=== PATIENT | male | born 1985 | race African-American/Black ===

== ENCOUNTER 2018-09-10 14:21 | Inpatient (IN) ==
--- NOTE | 2018-09-10 15:00 | EKG Report ---
Test Performed on : 09/10/2018 2:55:42 PM Test Reason : SOB Blood Pressure : / mmHG Vent. Rate : 092 BPM Atrial Rate : 092 BPM P-R Int : 192 ms QRS Dur : 104 ms QT Int : 406 ms P-R-T Axes : 027 -43 068 degrees QTc Int : 502 ms Normal sinus rhythm. Left axis deviation Anterior infarct (cited on or before 03-MAR-2018) Prolonged QT Abnormal ECG When compared with ECG of 03-MAR-2018 01:30, Nonspecific T wave abnormality has replaced inverted T waves in Lateral leads Unconfirmed Result
[2018-09-10 15:30] LABS: BASO# 0.02 X1000 (0.0-0.2); BASO% 0.3 % (0.0-0.8); EOS# 0.09 X1000 (0.0-0.7); EOS% 1.5 % (0.0-10.0); HEMATOCRIT 38.9 % (42.0-52.0); HEMOGLOBIN 12.3 g/dL (14.0-18.0); LYMPH# 2.02 X1000 (1.2-3.4); LYMPH% 34.5 % (20.5-51.1); MCH 28.4 PG (27-31); MCHC 31.6 g/dL (33-37); MCV 89.8 FL (81-99); MONO# 0.45 X1000 (0.11-0.59); MONO% 7.7 % (1.7-9.3); MPV 9.6 FL (7.4-10.4); NEUT# 3.28 X1000 (1.4-6.5); PLT 305 X1000 (130-400); RBC 4.33 XMIL (4.7-6.1); WBC 5.86 X1000 (4.8-10.8)
[2018-09-10 15:34] LABS: INR 1.06; PROTIME 14.7 Seconds (11.0-16.0)
--- NOTE | 2018-09-10 15:43 | Diag Imaging Result Doc PS360 ---
EXAM: CHEST-2 VIEWS HISTORY: SOB TECHNIQUE: Chest two views COMPARISON: 03/03/2018 FINDINGS: The lungs are well expanded. The heart is enlarged. Mild central vascular distention. There are no infiltrates. No pleural effusions. IMPRESSION: Cardiomegaly Electronically signed by Jim Clark 09/10/2018 3:41 PM
[2018-09-10 15:50] LABS: AGAP 9; ALB/GLOB RATIO 1.1; ALBUMIN 3.8 g/dL (3.5-5.0); ALKALINE PHOSPHATASE 69 U/L (32-122); BUN 18 mg/dL (8-22); CALCIUM 9.2 mg/dL (8.8-10.2); CHLORIDE 102 mmol/L (98-107); CK TOTAL 50 U/L (24-204); COSMO 282; CREATININE 1.1 mg/dL (0.7-1.2); ESTIMATED GFR > 60; GLUCOSE 111 mg/dL (70-104); GOT 11 U/L (10-34); GPT 14 U/L (10-44); POTASSIUM 4.4 mmol/L (3.5-5.1); SODIUM 140 mmol/L (136-145); TCO2 29 mmol/L (25-35); TOTAL BILIRUBIN 0.86 mg/dL (0.20-1.00); TOTAL PROTEIN 7.4 g/dL (6.3-8.3)
--- NOTE | 2018-09-10 18:58 | HISTORY AND PHYSICAL ---
PRIMARY CARE PHYSICIAN: Dr. Keron Quiñonez. PAPER BAG INSPECTOR: Dr. Chalo Cole. CHIEF COMPLAINT: Edema and dyspnea. HISTORY OF PRESENT ILLNESS: Mr. Reynaga is a 33-year-old male with a history of nonischemic cardiomyopathy, EF of 20%, , morbid obesity, hypertension and medical noncompliance who presents with roughly two weeks of increasing dyspnea, cough, lower extremity and abdominal swelling. He is unable to report on orthopnea, as he does not lie flat at night, but he does report ever increasing shortness of breath with exertion. He denies any chest pain. No fever, chills, or mucopurulent sputum production. He does report that he is noncompliant with intake of salt and fluids, but he does take his medications. He has not had a Cardiology evaluation since last year, per his report. When he got to the ER, he had labs and diagnostics done. He is noted to be slightly anemic with a proBNP of 2038, otherwise unremarkable. His EKG showed a normal sinus rhythm with a first degree AV block, left axis deviation, and nonspecific T wave changes in the lateral leads. The first set of troponin negative. He is going to be admitted for observation status. Cardiology has been consulted. PAST MEDICAL HISTORY: 1. Nonischemic cardiomyopathy with systolic heart failure, EF 25%. 2. History of poorly controlled hypertension. 3. Question of atrial fibrillation noted on chart in 2013. 4. Morbid obesity. 5. Chronic anemia. 6. History of stroke without any long-term sequela. SURGICAL HISTORY: 1. Left ankle surgery. SOCIAL HISTORY: He denies tobacco, alcohol, or drug use. His girlfriend is at the bedside. He has three children. FAMILY HISTORY: Father from what sounded like homicide. Mother is still alive without any medical problems, per his report. REVIEW OF SYSTEMS: A 14-point review of systems was obtained and found to be negative with the exception of the HPI. ALLERGIES: Vancomycin and lisinopril. HOME MEDICATIONS: Cozaar 25 mg daily, Aldactone 25 mg daily, Demadex 20 mg p.o. b.i.d., Coreg 25 mg p.o. b.i.d. PHYSICAL EXAMINATION: VITAL SIGNS: Blood pressure 127/85; heart rate 81; respiratory rate 22; O2 saturation 96% on room air; temperature 98.2. GENERAL: This is a morbidly obese 33-year-old male lying in the hospital bed in no acute distress. NEUROLOGICAL: He is awake, alert, and oriented. Follows commands without focal deficits. HEENT: Head is atraumatic and normocephalic. His pupils are equal, round and reactive to light. His oral mucosa is moist. NECK: Unable to assess neck secondary to body habitus. CHEST: Distant lung sounds but faint crackles heard in the lung bases. CARDIOVASCULAR: Regular rate and rhythm. S1 and S2 are noted. GASTROINTESTINAL: Soft. Nondistended. Nontender. Bowel sounds are active. EXTREMITIES: Trace edema. Pulses 1+ bilaterally. DIAGNOSTIC DATA: Chest x-ray shows mild central vascular distention and cardiomegaly. EKG shows sinus rhythm; first degree AV block; left axis deviation; nonspecific T wave changes. WBC 5.86, hemoglobin 12.3, hematocrit 38.9, platelet count 305,000. INR 1.06. Sodium 140, potassium 4.4, chloride 102, CO2 29, anion gap 9, BUN 18, creatinine 1.1, glucose 111. LFTs are negative. Troponin negative. proBNP 8. Albumin 3.8. ASSESSMENT AND PLAN: 1.Acute on chronic systolic heart failure: We will add intravenous diuresis and follow his intake and output. Will trend cardiac enzymes and make sure he is on aspirin. Consult Cardiology. We will restart his home medications with the exception of his Demadex, instead add intravenous Lasix. He would be a good candidate for Entresto, however he is allergic to lisinopril but he does take losartan. We will also order a nutrition consult as he admits to poor heart healthy diet. 2. Hypertension: Continue home medications. 3. Morbid obesity with a body mass index greater than 60: We have advised weight loss. Will continue to try and provide education on a daily basis and nutrition will be consulted as well. 4. Deep venous thrombosis prophylaxis with Lovenox. Further recommendations to follow. Dictated by HILARY Vinson for Sharon Ha MD cc: HILARY Vinson MD I performed a face to face encounter on the patient. I reviewed all labs and imaging on the patient. I agree with the H&P as dictated. is a 33 year old male with a history of nonischemic cardiomyopathy and biventricular heart failure who presented with increased abdominal and lower extremity swelling. On exam, the patient has 1+ edema in his lower extremities. His breath sounds are clear to auscultation bilaterally. His chest xray shows cardiomegaly. Will admit the patient and place him on telemetry and initiate IV diuretic therapy. Will also consult with the motor home electrical foreman due to his extensive cardiac history. TRACI
[2018-09-10 19:08] LABS: URINE SOURCE CLEAN CATCH
[2018-09-10 19:09] LABS: TSH 2.79 uIUmL (0.27-4.20)
[2018-09-10 19:13] LABS: BILIRUBIN URINE NEGATIVE (NEGATIVE); BLOOD URINE NEGATIVE (NEGATIVE); COLOR YELLOW; GLUCOSE URINE NEGATIVE (NEGATIVE); KETONE URINE NEGATIVE (NEGATIVE); LEUKOCYTES URINE NEGATIVE (NEGATIVE); NITRITE URINE NEGATIVE (NEGATIVE); PH URINE 6.5; PROTEIN URINE 100 mg/dL (NEGATIVE); TURBIDITY URINE CLEAR (CLEAR); UROBILINOGEN URINE NORMAL (NORMAL)
[2018-09-10 19:16] LABS: UR EPITHELIAL CELLS <10 /HPF (<10); URINE BACTERIA NEGATIVE /HPF; URINE RBC <10 /HPF (<10); URINE WBC <10 /HPF (<10)
--- NOTE | 2018-09-10 19:30 | PROVIDER DOCUMENTATION ---
This chart was entered by Lavonne Ramirez Scribe, acting as scribe for Eunice Carrington MD. HPI-Respiratory General - General Chief Complaint: Shortness of Breath Stated Complaint: CHF-COUGHING UP BLOOD Time Seen by Provider: 09/10/18 16:31 Source: patient Allergies/Adverse Reactions: Patient Allergies Allergy/AdvReac Type Severity Reaction Status Date / Time vancomycin Allergy RASH Verified 09/10/18 17:02 lisinopril AdvReac SWELLING Verified 09/10/18 17:02 Home Medications: Home Medication List Medication Instructions Recorded Confirmed Last Taken Type Carvedilol [Coreg] 25 mg PO BID 11/03/14 09/10/18 09/10/18 History Torsemide [Demadex] 20 mg PO BID 11/03/14 09/10/18 09/10/18 History Spironolactone 25 mg PO DAILY 11/03/16 09/10/18 09/10/18 History Losartan [Cozaar] 25 mg PO DAILY 09/10/18 09/10/18 09/10/18 History - History of Present Illness-Resp Nature of Presenting Problem: 33 yom presents to the ed with c/o neck pain, sob and left arm pain only when walking. pt is morbidly obese and sts sleeps in a recliner. pt denies chest pain. pt sts BLE swelling. Quality of Pain: reports: aching Severity in ED: reports: mild Onset/Duration: reports: 3 days ago Timing: reports: still present, getting worse Exposure: reports: unknown cause Cough Quality/Degree: reports: no cough Episode Frequency: no prior episodes Current Respiratory Medication Therapy: Initiated see nurses note Modifying Factors: improves with: rest, sitting upright. worse with: exertion Associated Symptoms: reports: shortness of breath, other (neck pain and left arm numbness). denies: chest pain/soreness, cough, fever/chills Similar Symptoms Previously?: No Recently seen or treated by another doctor?: No Review of Systems - Adult - REVIEW OF SYSTEMS - ADULT Constitutional: denies: chills, fever Eyes: reports: no symptoms reported Ears, Nose, Mouth & Throat: reports: no symptoms reported Cardiovascular: denies: chest pain, palpitations Respiratory: reports: no symptoms reported Gastrointestinal: denies: abdominal pain, diarrhea, nausea, vomiting Genitourinary: reports: no symptoms reported Musculoskeletal: reports: see HPI, muscle aches, neck pain, other (left arm pain) Integumentary: reports: no symptoms reported Neurological: denies: dizziness/vertigo, headache/migraines Past History - Adult - PAST MEDICAL HISTORY-ADULT Review of Records: reports: Nursing Assessment Review, Medications Reviewed Major Childhood Illnesses: reports: denies history Cardiovascular: reports: A-Fib, blood clots, CHF, HTN, other (ICD) Respiratory: reports: denies history Gastrointestinal: reports: denies history Genitourinary: reports: denies history Musculoskeletal: reports: denies history Hand Dominance: Right Handed Neurological: reports: CVA Psychiatric: reports: denies history Endocrine/Immune: reports: denies history Other Conditions: reports: denies history - PRIOR SURGERIES/PROCEDURES Surgical/Procedure History: reports: recent surgery, other (defibrillator) - IMMUNIZATION STATUS Childhood Immunizations: See Nurse Assessment Flu Vaccine: See Nurse Assessment - FAMILY HISTORY Family History: reviewed, not pertinent - SOCIAL HISTORY Smoking: denies Substance Use: denies Living Situation: family Physical Exam-General - CONSTITUTIONAL General Appearance: alert, mild distress, obese - EYES Eyes: PERRL/EOMI, pink conjunctivae - HEAD, EARS, NOSE, MOUTH & THROAT HENMT: moist mucous membranes, normal ENT inspection - NECK Neck: non-tender, full range of motion, supple, normal inspection - RESPIRATORY Respiratory: chest non-tender, respiratory distress, decreased breath sounds, wheezing, increased rate (23). negative: crackles - CARDIOVASCULAR Cardiovascular: normal peripheral pulses, regular rate, rhythm - GASTROINTESTINAL (ABDOMEN) Abdominal Exam: normal bowel sounds, non tender, soft, other (Obese) - MUSCULOSKELETAL Extremity: normal range of motion, non-tender, normal gait, no pedal edema, no calf tenderness - SKIN Integumentary: normal color, normal turgor, warm/dry - NEUROLOGIC Neurologic: grossly normal, no motor/sensory deficits - PSYCHIATRIC Psych/Mental Status: normal mood/affect, normal thought content, normal thought process, oriented x 3 Progress - PLAN OF CARE/RESULTS Progress/Plan/Lab Results: Vital Signs - 8 hr 09/10/18 14:52 09/10/18 16:15 09/10/18 16:20 Temperature 98.2 F Pulse Rate 92 H 82 83 Respiratory Rate 20 14 23 Blood Pressure 127/85 O2 Sat by Pulse Oximetry 95 97 09/10/18 16:30 09/10/18 16:40 09/10/18 16:50 Temperature Pulse Rate 81 82 74 Respiratory Rate 20 19 20 Blood Pressure O2 Sat by Pulse Oximetry 97 97 97 09/10/18 17:00 09/10/18 17:10 09/10/18 17:20 Temperature Pulse Rate 81 86 78 Respiratory Rate 22 33 H 25 H Blood Pressure O2 Sat by Pulse Oximetry 96 96 97 09/10/18 17:30 09/10/18 17:40 09/10/18 17:50 Temperature Pulse Rate 78 78 78 Respiratory Rate 22 23 8 L Blood Pressure O2 Sat by Pulse Oximetry 98 98 98 09/10/18 18:00 09/10/18 18:10 09/10/18 18:20 Temperature Pulse Rate 86 87 88 Respiratory Rate 30 H 24 16 Blood Pressure O2 Sat by Pulse Oximetry 98 96 92 L Laboratory Results - last 24 hr 09/10/18 09/10/18 09/10/18 14:38 14:58 14:58 WBC 5.86 RBC 4.33 L Hgb 12.3 L Hct 38.9 L MCV 89.8 MCH 28.4 MCHC 31.6 L RDW Std Deviation 13.0 Plt Count 305 MPV 9.6 Immature Gran % (Auto) 0.0 Neut % (Auto) 56.0 Lymph % (Auto) 34.5 [place] % (Auto) 7.7 Eos % (Auto) 1.5 Baso % (Auto) 0.3 Immature Gran # (Auto) 0.00 Neut # (Auto) 3.28 Lymph # (Auto) 2.02 [place] # (Auto) 0.45 Eos # (Auto) 0.09 Baso # (Auto) 0.02 PT INR PTT (Actin FS) Sodium 140 Potassium 4.4 Chloride 102 Carbon Dioxide 29 Anion Gap 9 BUN 18 Creatinine 1.1 Estimated GFR/1.73 m2 > 60 BUN/Creatinine Ratio 16 Glucose 111 H Calculated Osmolality 282 Calcium 9.2 Ferritin 110 Total Bilirubin 0.86 AST 11 ALT 14 Alkaline Phosphatase 69 Creatine Kinase 50 Troponin T Qlv-N-Ewnowymmdnk Pept Total Protein 7.4 Albumin 3.8 Globulin 3.6 Albumin/Globulin Ratio 1.1 Vitamin B12 764 TSH 2.79 Urine Source Urine Color Urine Turbidity Urine pH Ur Specific [place] Urine Protein Ur Glucose (Stick) Ur Ketones (Stick) Urine Blood Urine Nitrite Urine Bilirubin Urobilinogen Dipstick Urine Leukocytes Urine WBC (Auto) Urine RBC (Auto) U Epithel Cells (Auto) Urine Bacteria (Auto) 09/10/18 09/10/18 09/10/18 14:58 14:58 14:58 WBC RBC Hgb Hct MCV MCH MCHC RDW Std Deviation Plt Count MPV Immature Gran % (Auto) Neut % (Auto) Lymph % (Auto) [place] % (Auto) Eos % (Auto) Baso % (Auto) Immature Gran # (Auto) Neut # (Auto) Lymph # (Auto) [place] # (Auto) Eos # (Auto) Baso # (Auto) PT 14.7 INR 1.06 PTT (Actin FS) 28.0 Sodium Potassium Chloride Carbon Dioxide Anion Gap BUN Creatinine Estimated GFR/1.73 m2 BUN/Creatinine Ratio Glucose Calculated Osmolality Calcium Ferritin Total Bilirubin AST ALT Alkaline Phosphatase Creatine Kinase Troponin T < 0.010 Sqb-[id number]-Rngvrybzdox Pept 2038 H Total Protein Albumin Globulin Albumin/Globulin Ratio Vitamin B12 TSH Urine Source Urine Color Urine Turbidity Urine pH Ur Specific [place] Urine Protein Ur Glucose (Stick) Ur Ketones (Stick) Urine Blood Urine Nitrite Urine Bilirubin Urobilinogen Dipstick Urine Leukocytes Urine WBC (Auto) Urine RBC (Auto) U Epithel Cells (Auto) Urine Bacteria (Auto) 09/10/18 18:56 WBC RBC Hgb Hct MCV MCH MCHC RDW Std Deviation Plt Count MPV Immature Gran % (Auto) Neut % (Auto) Lymph % (Auto) [place] % (Auto) Eos % (Auto) Baso % (Auto) Immature Gran # (Auto) Neut # (Auto) Lymph # (Auto) [place] # (Auto) Eos # (Auto) Baso # (Auto) PT INR PTT (Actin FS) Sodium Potassium Chloride Carbon Dioxide Anion Gap BUN Creatinine Estimated GFR/1.73 m2 BUN/Creatinine Ratio Glucose Calculated Osmolality Calcium Ferritin Total Bilirubin AST ALT Alkaline Phosphatase Creatine Kinase Troponin T Wgz-Z-Diymwkewgvw Pept Total Protein Albumin Globulin Albumin/Globulin Ratio Vitamin B12 TSH Urine Source CLEAN CATCH Urine Color YELLOW Urine Turbidity CLEAR Urine pH 6.5 Ur Specific [place] 1.000 Urine Protein 100 A Ur Glucose (Stick) NEGATIVE Ur Ketones (Stick) NEGATIVE Urine Blood NEGATIVE Urine Nitrite NEGATIVE Urine Bilirubin NEGATIVE Urobilinogen Dipstick NORMAL Urine Leukocytes NEGATIVE Urine WBC (Auto) <10 Urine RBC (Auto) <10 U Epithel Cells (Auto) <10 Urine Bacteria (Auto) NEGATIVE Orders Category Date Time Status Admit - [facility] Routine AdmDCTranf 09/10/18 18:13 Active Activity - Up with Assistance ORDERED Care 09/10/18 18:13 Active DVT/PE Risk Assess/Protocol [QM] ORDERED Care 09/10/18 18:13 Active Daily Weights 0500 Care 09/10/18 18:16 Active Intake and Output-Strict ORDERED Care 09/10/18 18:13 Active Nursing- MD Consult Request ROUTINE Care 09/10/18 18:13 Active Vital Signs Order Q 4-HR ASSESS Care 09/10/18 18:13 Active Z-Document. for Tele Applied ORDERED Care 09/10/18 18:13 Active Nutrition [Dietitian Consult] Routine Cons 09/10/18 18:36 Active Physician/Provider Consults Routine Cons 09/10/18 18:13 Ordered Heart Healthy Diet Diet 09/10/18 18:13 Active cxr [CHEST-2 VIEWS] [RAD] Stat Exams 09/10/18 14:55 Completed A1C HGB W EST AVG GLUCOSE [CHEM] Routine Lab 09/11/18 06:00 Ordered BASIC METABOLIC PANEL [CHEM] DAILY Lab 09/11/18 06:00 Ordered BASIC METABOLIC PANEL [CHEM] DAILY Lab 09/12/18 06:00 Ordered CBC WITH DIFF [HEME] Stat Lab 09/10/18 14:58 Completed CBC WITH NO DIFF [HEME] DAILY Lab 09/11/18 06:00 Ordered CBC WITH NO DIFF [HEME] DAILY Lab 09/12/18 06:00 Ordered CK PROFILE [SP CHEM] Q6H Lab 09/10/18 18:30 Ordered CK PROFILE [SP CHEM] Q6H Lab 09/11/18 00:30 Ordered CK TOTAL [CHEM] Stat Lab 09/10/18 14:58 Completed COMPREHENSIVE METABOLIC PANEL [CHEM] Stat Lab 09/10/18 14:58 Completed FERRITIN Routine Lab 09/10/18 14:38 Completed FOLATE Timed Lab 09/10/18 18:14 Received LIPID PROFILE W/DIR LDL [LIPIDS] Routine Lab 09/11/18 06:00 Ordered MAGNESIUM [CHEM] DAILY Lab 09/11/18 06:00 Ordered MAGNESIUM [CHEM] DAILY Lab 09/12/18 06:00 Ordered MAGNESIUM [CHEM] DAILY Lab 09/13/18 06:00 Ordered PRO B-NATRIURETIC PEPTIDE Stat Lab 09/10/18 14:58 Completed PROTIME WITH INR [COAG] Stat Lab 09/10/18 14:58 Completed PTT [COAG] Stat Lab 09/10/18 14:58 Completed TROPONIN T Q6H Lab 09/10/18 18:15 Ordered TROPONIN T Q6H Lab 09/11/18 00:15 Ordered TROPONIN T Stat Lab 09/10/18 14:58 Completed TSH Timed Lab 09/10/18 14:38 Completed URINALYSIS W/POSS RFLX CULT [URINALYSIS] Routine Lab 09/10/18 18:56 Completed URINE DRUG SCREEN Stat Lab 09/10/18 18:56 Received VITAMIN B12 Timed Lab 09/10/18 14:38 Completed Carvedilol [Coreg] Med 09/10/18 21:00 Active 25 mg PO BID Furosemide [Lasix] Med 09/10/18 18:15 Active 40 mg IV Q12H Losartan [Cozaar] Med 09/11/18 09:00 Active 25 mg PO DAILY Spironolactone [Aldactone] Med 09/11/18 09:00 Active 25 mg PO DAILY Telemetry [OM.EQ] Routine Oth 09/10/18 18:13 Active EKG [EKG] Stat Ther 09/10/18 14:55 Draft Transfer/Admit Order [TRANSFER] Routine Transfer 09/10/18 18:11 Ordered Patient with extensive cardiac Hx, BNP is elevated. likely the diuretic dose is low. pt also has neck pain and arm numbness upon walking, last stress test in 2002 per patient. need further workup inpatient. Pt care, assessment and plan discussed with the attending physician Dr. Lema and he agree with the plan as documented. Result Diagrams: 09/10/18 14:58 09/10/18 14:58 - REASSESSMENT Reassessment #1 Time Reassessed: 17:36 Status: unchanged - EKG 1 Time of EKG reading by physician:: 14:55 EKG Read and Signed by:: Eunice Carrington EKG Interpretation (*Must complete 3 of following elements*): Abnormal Rate: 92 Rhythm: nsr Elbert: left (deviation) QRS: other (prolonged QT) ST Wave: normal Comments: anterior infarct, age undetermiend - XRAY 1 XRAY: Bilateral XRAY Study: Chest Impression: See EMR Report (EXAM: CHEST-2 VIEWS HISTORY: SOB TECHNIQUE: Chest two views COMPARISON: 03/03/2018 FINDINGS: The lungs are well expanded. The heart is enlarged. Mild central vascular distention. There are no infiltrates. No pleural effusions. IMPRESSION: Cardiomegaly Electronically signed by Jim Clark 09/10/2018 3:41 PM 09/10/18 1541 Interpreting Physic loretta: Jim Clark MD Dictated Date/Time: 09/10/18 1540 cc: Hermes Lema MD; Keron Quiñonez MD) - CONSULTS/PCP/HOSPITALIST Notification #1 *Consult/PCP/Hospitalist*: MYNOR Martin admitting for Dr. Ha Time Discussed: 17:43 Consult Disposition: Admit (Hx, PE and pt care discussed, accepted.) Departure - Departure Date of Disposition Decision: 09/10/18 Time of Disposition Decision: 17:44 DIAGNOSIS: Neck pain CHF exacerbation Qualifiers: Heart failure type: unspecified Qualified Code(s): I50.9 - Heart failure, unspecified Disposition: ADMITTED INPATIENT 09 Certified Medical Emergency: Emergent Condition: Stable Referrals and Follow-Ups: Keron Quiñonez MD [Primary Care Provider] - - Critical Care Note This patient required my direct & personal management of CC.: No Attestation - Physician/ VISHAL Attestation Patient care was provided by Advanced Practice Provider:: No The physician spent face to face time with patient:: Yes Advanced Practice Provider documentation review:: Supervising physician onsite and consulted in the evaluation and care of this patient. The physician did have a face to face encounter with the patient. This chart was documented by the indicated scribe, (Lavonne Ramirez Scribe) and accurately reflects the services I performed and decisions made by me, Eunice Carrington MD, as attested by the provider's signature.
[2018-09-10 19:36] LABS: UR AMPHETAMINES QUAL NONE DETECTED (NONE DETECT); UR BARBITUATES QUAL NONE DETECTED (NONE DETECT); UR BENZODIAZEPIN QUAL NONE DETECTED (NONE DETECT); UR CANNABINOIDS QUAL NONE DETECTED (NONE DETECT); UR COCAINE QUAL NONE DETECTED (NONE DETECT); UR METHADONE QUAL NONE DETECTED (NONE DETECT); UR OPIATES QUAL NONE DETECTED (NONE DETECT); UR OXYCODONE QUAL NONE DETECTED (NONE DETECT); UR PCP QUAL NONE DETECTED (NONE DETECT)
[2018-09-10] MEDS: LASIX IV SCH (20:26)
[2018-09-10] MEDS: COREG PO SCH (20:30)
[2018-09-11] MEDS: LASIX IV SCH ×2 (05:35→14:48)
[2018-09-11 07:37] LABS: HEMATOCRIT 38.5 % (42.0-52.0); HEMOGLOBIN 12.2 g/dL (14.0-18.0); MCHC 31.7 g/dL (33-37); MCV 91.7 FL (81-99); MPV 9.4 FL (7.4-10.4); RBC 4.2 XMIL (4.7-6.1); RDW 13.1 % (11.5-14.5); WBC 5.62 X1000 (4.8-10.8)
[2018-09-11 08:02] LABS: HEMOGLOBIN A1C 6.3 % (4.8-6.0)
[2018-09-11 08:08] LABS: AGAP 12; BUN 15 mg/dL (8-22); CALCIUM 9.2 mg/dL (8.8-10.2); CHLORIDE 103 mmol/L (98-107); COSMO 283; CREATININE 1.1 mg/dL (0.7-1.2); ESTIMATED GFR > 60; GLUCOSE 106 mg/dL (70-104); POTASSIUM 4.1 mmol/L (3.5-5.1); SODIUM 141 mmol/L (136-145); TCO2 26 mmol/L (25-35)
[2018-09-11] MEDS: COZAAR PO SCH (09:32)
[2018-09-11] MEDS: COREG PO SCH ×2 (09:32→20:41)
[2018-09-11] MEDS: ALDACTONE PO SCH (09:32)
[2018-09-11] MEDS: HUMULIN R SUBQ SCH ×3 (10:39→20:35)
[2018-09-11] MEDS: GLUCOPHAGE PO SCH (17:15)
--- NOTE | 2018-09-11 19:49 | CONSULTATION ---
DATE OF CONSULTATION: 09/11/2018 IMPRESSION: 1. Acute on chronic systolic heart failure predominantly right-sided with neck vein distention and increasing exertional shortness of breath. 2. Severe nonischemic cardiomyopathy with left ventricular ejection fraction 25%. 3. Hypertension. 4. Type 2 diabetes mellitus. 5. Morbid obesity. 6. Status post implantable defibrillator which had to be removed due to infection. He had subcutaneous implantable defibrillator as well which also had to be removed due to infection. RECOMMENDATIONS: 1. Diurese with intravenous Lasix. 2. Consider merits of future sleep study to screen for sleep apnea. 3. Weight loss strongly encouraged. HISTORY: This 33-year-old, -[place] male with past history of nonischemic cardiomyopathy, hypertension, and morbid obesity was admitted with increasing exertional shortness of breath and complaint of fluid buildup. He has history of severe nonischemic cardiac myopathy dating back approximately 3 to 4 years. Previous coronary angiography demonstrated no coronary disease. He is status post implantable defibrillator on 2 occasions, 1 transvenous and the other subcutaneous. Both ultimately were removed due to infection. He reports a several week history of increasing exertional shortness of breath. There has been no orthopnea. He reports compliance with sodium restriction. PAST MEDICAL HISTORY: 1. Severe nonischemic cardiomyopathy. 2. Hypertension. 3. Type 2 diabetes mellitus. 4. Morbid obesity. 5. Status post implantable defibrillator on 2 occasions, each which had to be removed due to infection complications. PAST SURGICAL HISTORY: Also includes previous left ankle surgery. ALLERGIES: He is allergic or intolerant to vancomycin and lisinopril. MEDICATIONS PRIOR TO ADMISSION: As listed. SOCIAL HISTORY: He is on disability. He does not smoke or use alcohol. FAMILY HISTORY: Negative for premature coronary disease. REVIEW OF SYSTEMS: Pulmonary: Noteworthy for exertional shortness of breath but negative for cough. Gastrointestinal: Negative. Constitutional: Negative. Remainder review of systems negative/noncontributory with 14 total systems reviewed. PHYSICAL EXAMINATION: Reveals a morbidly obese, adult -[place] male in no distress.Vital signs: Blood pressure 107/53, heart rate 79, oxygen saturation 100% on room air. HEENT: Extraocular movements appear intact. Mucous membranes moist. Neck: Supple. Jugular distention is evident suggesting elevated central venous pressure. Chest: Clear to auscultation bilaterally. Cardiac Exam: Reveals a regular rate and rhythm without appreciable murmur or gallop. Abdomen: Soft. Bowel sounds are normal. Extremities: Without edema. DATA: Twelve lead EKG demonstrates normal sinus rhythm, left axis deviation, and delayed precordial R-wave progression, cannot exclude previous anterior infarct of undetermined age. QT interval is prolonged. LABORATORY DATA: Includes white blood cell count 5.62, hematocrit 38.5, hemoglobin 12.2, platelet count 290,000. Sodium 141, potassium 4.1, chloride 103, carbon dioxide 26, BUN 15, creatinine 1.1, glucose 106, magnesium 2.0. Initial troponin less than 0.01. Followup troponin less than 0.01. Pro-B natriuretic peptide level 2038. Albumin 3.8. cc: Chalo Cole MD
[2018-09-11] MEDS: LOVENOX SUBQ SCH (20:41)
--- NOTE | 2018-09-11 22:31 | PROGRESS NOTE ---
DATE: 09/11/2018 SUBJECTIVE: The patient is sitting in bed. He complains of swelling in his legs and abdomen. OBJECTIVE: Vital Signs: Temperature 98 degrees, blood pressure 131/72, heart rate 78, respirations 20, O2 saturations 100% on room air. General: This is a young male, sitting in bed, in no acute distress. Heart: S1, S2 normal. Regular rate and rhythm. Lungs: Equal air entry bilaterally. No crackles. No rales. Abdomen: Positive bowel sounds. Soft. Distended. Extremities: 1+ edema bilaterally. Neurologic: The patient is alert and oriented x3. LABS: Glucose 106. A1c 6.3. LDL 102. Sodium 141, potassium 4.1, chloride 103, CO2 of 26, BUN 15, creatinine 1.1. ASSESSMENT AND PLAN: 1. Acute on chronic systolic congestive heart failure exacerbation. Continue with diuretic therapy and the current cardiac medications as directed by the director global medical affairs. 2. Newly diagnosed diabetes mellitus. We will start the patient on Glucophage. We will consult with the dietitian to provide the patient with dietary recommendations. The patient has also been advised to lose weight. 3. Morbid obesity. Aware. 4. Hypertension. Continue on the current antihypertensive regimen. 5. Cardiomyopathy. The patient has an ejection fraction of 15 to 20 percent. 6. Deep vein thrombosis prophylaxis. Will start the patient on Lovenox. cc: Sharon Ha MD
[2018-09-12] MEDS: HUMULIN R SUBQ SCH ×4 (06:23→23:28)
[2018-09-12 07:48] LABS: HEMATOCRIT 39.3 % (42.0-52.0); HEMOGLOBIN 12.6 g/dL (14.0-18.0); MCHC 32.1 g/dL (33-37); MCV 90.6 FL (81-99); MPV 9.7 FL (7.4-10.4); RBC 4.34 XMIL (4.7-6.1); WBC 5.87 X1000 (4.8-10.8)
[2018-09-12] MEDS: GLUCOPHAGE PO SCH ×2 (08:01→17:21)
[2018-09-12] MEDS: ALDACTONE PO SCH (08:01)
[2018-09-12] MEDS: COZAAR PO SCH (08:01)
[2018-09-12] MEDS: LASIX IV SCH (08:01)
[2018-09-12] MEDS: COREG PO SCH ×2 (08:01→19:59)
[2018-09-12 08:14] LABS: AGAP 13; BUN 17 mg/dL (8-22); CALCIUM 9.2 mg/dL (8.8-10.2); CHLORIDE 102 mmol/L (98-107); COSMO 270; CREATININE 1.1 mg/dL (0.7-1.2); ESTIMATED GFR > 60; GLUCOSE 101 mg/dL (70-104); POTASSIUM 4.7 mmol/L (3.5-5.1); SODIUM 134 mmol/L (136-145); TCO2 19 mmol/L (25-35)
[2018-09-12] MEDS: LOVENOX SUBQ SCH (19:59)
[2018-09-12 22:10] LABS: AGAP 12; BUN 18 mg/dL (8-22); CALCIUM 9.6 mg/dL (8.8-10.2); CHLORIDE 99 mmol/L (98-107); CK PROFILE 61 U/L (24-204); COSMO 275; CREATININE 1.1 mg/dL (0.7-1.2); ESTIMATED GFR > 60; GLUCOSE 93 mg/dL (70-104); MAGNESIUM 1.9 mg/dL (1.5-2.7); POTASSIUM 4.1 mmol/L (3.5-5.1); SODIUM 137 mmol/L (136-145); TCO2 26 mmol/L (25-35)
[2018-09-13] MEDS ORDERED: NORCO-10 PO PRN (05:00)
[2018-09-13] MEDS: HUMULIN R SUBQ SCH ×2 (06:41→12:19)
[2018-09-13 07:15] LABS: AGAP 13; BUN 17 mg/dL (8-22); CALCIUM 9.5 mg/dL (8.8-10.2); CHLORIDE 103 mmol/L (98-107); COSMO 285; CREATININE 1.1 mg/dL (0.7-1.2); ESTIMATED GFR > 60; GLUCOSE 101 mg/dL (70-104); MAGNESIUM 1.8 mg/dL (1.5-2.7); POTASSIUM 4.1 mmol/L (3.5-5.1); SODIUM 142 mmol/L (136-145); TCO2 26 mmol/L (25-35)
--- NOTE | 2018-09-13 08:10 | PROGRESS NOTE ---
DATE: 09/12/2018 SUBJECTIVE: The patient is in the restroom at this time. No acute events overnight. OBJECTIVE: Vital Signs: Temperature 98.1 degrees, blood pressure 107/59, heart rate 76, respirations 18, O2 saturation 96% on room air. LABORATORY DATA: White blood cell count 5.8, hemoglobin 12, hematocrit 39, platelets 276,000. Sodium 134, potassium 4.7, chloride 102, CO2 of 19, BUN 17, creatinine 1.1, glucose 101. ASSESSMENT AND PLAN: 1. Acute on chronic systolic congestive heart failure exacerbation. Continue with diuretic therapy. 2. Diabetes mellitus type 2. Continue on Glucophage. 3. Nonischemic cardiomyopathy. Aware. 4. Morbid obesity. Aware. The patient has been counseled about weight loss and proper diet. 5. Hypertension. Stable. 6. Deep vein thrombosis prophylaxis. Continue on Lovenox. cc: Sharon Ha MD MTDD
--- NOTE | 2018-09-13 08:19 | CARDIOLOGY PROGRESS NOTE ---
DATE: 09/12/2018 SUBJECTIVE: Mr. Reynaga reports he feels better. His orthopnea that he had on presentation has essentially resolved. PHYSICAL EXAMINATION: Vital Signs: Afebrile, heart rate is 107, most pulses seem to be in the 70s to 80s, his blood pressure is 148/91. The last several systolics appear to be ranging in the 90s to 130s. His I's and O's are a total net negative out of 2.8 L with 1 void not measured. General: No acute distress. Cardiovascular: He sounds to be in a regular rate and rhythm. Very distant heart sounds. Chest: Sounds clear bilaterally, very distant. No increased work of breathing. Abdomen: Soft, nontender. Extremities: He has no lower extremity edema. PERTINENT LABORATORY DATA: Sodium is 134, potassium 4.7, BUN 17, creatinine is 1.1. His proBNP on 09/10/2018 was 2037. ASSESSMENT: Mr. Reynaga is a 33-year-old male with systolic heart failure. PLAN: It appears that his most likely reason for exacerbation is due to fluid restriction noncompliance. He is on his home medications with the exception of the IV Lasix. I will not make any adjustments presently. We will recheck a proBNP in the morning. cc: Félix Wood MD
[2018-09-13] MEDS: COZAAR PO SCH (08:55)
[2018-09-13] MEDS: ALDACTONE PO SCH (08:55)
[2018-09-13] MEDS: LASIX IV SCH (08:55)
[2018-09-13] MEDS: GLUCOPHAGE PO SCH (08:55)
[2018-09-13] MEDS: COREG PO SCH (08:55)
[2018-09-13 11:50] VITALS: BP 143/86
--- NOTE | 2018-09-13 15:18 | PROGRESS NOTE ---
DATE: 09/13/2018 SUBJECTIVE: The patient is sitting at the edge of the bed. He states that he feels a lot better and feels that the swelling in his lower extremities is better. He is requesting to go home. OBJECTIVE: Vital Signs: Temperature 98.3 degrees, blood pressure 143/86, heart rate 82, respirations 20, O2 saturation is 97% on room air. General: This is a morbidly obese, young male, sitting at the edge of the bed in no acute distress. Heart: S1, S2 normal. Lungs: Clear to auscultation bilaterally. Abdomen: Positive bowel sounds. Soft, obese, nontender. Extremities: There is 1+ edema bilaterally. Neurologic: The patient is alert and oriented x4. Labs: Sodium 142, potassium 4.1, chloride 103, CO2 26, BUN 17, creatinine 1.1, glucose 106, magnesium 1.8, calcium 9.5. ProBNP 2088. ASSESSMENT AND PLAN: 1. Acute on chronic systolic congestive heart failure exacerbation. Continue with diuretic therapy as directed by the machine stone polisher. 2. Diabetes mellitus type 2. The patient has been counseled about proper diet and weight loss. Continue on metformin. 3. Nonischemic cardiomyopathy. Aware. 4. Hypertension. Controlled. 5. Deep venous thrombosis prophylaxis. Continue on Lovenox. cc: Sharon Ha MD
--- NOTE | 2018-09-14 07:18 | EKG Report ---
Test Performed on : 09/12/2018 10:24:40 PM Test Reason : 50 beat run of v-tach per telemetry,palpitations Blood Pressure : / mmHG Vent. Rate : 084 BPM Atrial Rate : 084 BPM P-R Int : 200 ms QRS Dur : 126 ms QT Int : 418 ms P-R-T Axes : 022 -47 068 degrees QTc Int : 493 ms Normal sinus rhythm. Left axis deviation Nonspecific intraventricular block Anterolateral infarct (cited on or before 03-MAR-2018) Abnormal ECG When compared with ECG of 10-SEP-2018 14:55, (Unconfirmed) Questionable change in initial forces of Lateral leads Confirmed by Jr CORDOBA, Trung Constantino ([id number]) on 09/14/2018 9:28:14 AM
--- NOTE | 2018-09-14 10:39 | DISCHARGE SUMMARY ---
ADMISSION DATE: 09/12/2018 DISCHARGE DATE: 09/13/2018 FINAL DISCHARGE DIAGNOSES: 1. Acute on chronic systolic congestive heart failure exacerbation. 2. Nonischemic cardiomyopathy with an ejection fraction of 15 to 20 percent. 3. Morbid obesity with a body mass index of 60. 4. Newly diagnosed diabetes mellitus type 2. 5. Hypertension. CONSULTATIONS: Cardiology consultation with Dr. Cole. IMAGING: Chest x-ray performed on 09/10/2018 that revealed cardiomegaly. HOSPITAL COURSE: Mr. Reynaga is a 33-year-old male with a history of nonischemic cardiomyopathy with an ejection fraction of 15 to 20 percent and chronic systolic CHF, who presented to the ER with a chief complaint of lower abdominal swelling and lower extremity edema. On admission, a chest x-ray was done that revealed cardiomegaly but no pulmonary edema. Due to the patient's volume overload, he was admitted to the hospitalist service. Cardiology was consulted, given the patient's extensive cardiac history. The patient was started on Lasix 80 mg IV daily. The patient was able to diurese with the prescribed therapy, and stated that his swelling had improved and he was able to walk around a lot better. The patient was noted to have high blood sugars and so a hemoglobin A1c was done which revealed an A1c of 6.3. The patient was started on metformin and was counseled about proper diet and weight loss. The patient was also counseled extensively about the importance of fluid restriction as well as weighing himself every day. The patient continued to improve clinically and was cleared for discharge home on 09/13/2018. DISCHARGE MEDICATIONS: 1. Metformin 500 mg oral twice a day with meals. 2. Coreg 25 mg oral twice a day. 3. Demadex 40 mg p.o. twice a day. 4. Aldactone 25 mg oral daily. 5. Cozaar 25 mg oral daily. 6. [place] 10/325 one tablet oral every 6 hours p.r.n. for pain. DISCHARGE DIET: An 1800, ADA diet, 1.5 L fluid restriction. ACTIVITY: As tolerated. FOLLOWUP INSTRUCTIONS: The patient will need to follow up with Dr. Cole as scheduled by his clinic. cc: Sharon Ha MD
== END 2018-09-13 15:59 | disposition home or self-care (01) | DRG 292 ==
LOC: 3N 14:21 → ED 14:21 → SUATTDRO 20:13
PROVIDERS: ATTEND Internal Medicine
CPT/HCPCS: 71020; 71046; 80048; 80053; 80061; 80101; 80301; 80307; 80324; 80345; 80346; 80353; 80358; 80361; 80365; 81001; 82550; 82607; 82728; 82746; 82948; 83036; 83721; 83735; 83880; 83992; 84443; 84484; 85025; 85027; 85610; 85730; 93005; 93010; 94760; 94761; 96374; 99285; A9270; G0431; G0434; G0479; G0480; J1650; J1940; XXXXX